=== PATIENT | female | born 1930 | race Caucasian/White ===

== ENCOUNTER 2017-08-02 16:53 | Inpatient (IN) | payer MEDICARE, BC ==
[2017-08-02] MEDS ORDERED: Enoxaparin Sodium 30 MG/0.3 ML SYRINGE SC SCH (21:00)
[2017-08-02] MEDS ORDERED: Senokot S 8.6-50 MG TAB PO PRN (21:21)
[2017-08-02] MEDS ORDERED: PROVENTIL INHALER 6.7 G (200 INHALATIONS) INH PRN (21:21)
[2017-08-02] MEDS ORDERED: HYDROcodone/Acetaminophen 5/325 mg Tablet PO PRN (21:21)
[2017-08-02] MEDS ORDERED: Benzonatate 100 MG CAP PO PRN (21:21)
[2017-08-02] MEDS ORDERED: Acetaminophen 500 MG TAB PO PRN (21:28)
[2017-08-02] MEDS ORDERED: Cefuroxime 500 MG TAB PO SCH (22:45)
[2017-08-02] MEDS ORDERED: Atorvastatin Calcium 10 MG TAB PO SCH (22:45)
[2017-08-02] MEDS ORDERED: Montelukast Sodium 10 mg Tablet PO SCH (22:45)
[2017-08-02] MEDS ORDERED: Dronedarone HCl 400 MG TAB PO SCH (22:45)
[2017-08-02] MEDS ORDERED: Cefuroxime 500 MG TAB ONE (22:55)
[2017-08-03] MEDS: Ipratropium Bromide 2.5 ml Neb NEB SCH ×2 (00:40→06:46)
[2017-08-03] MEDS ORDERED: Levothyroxine Sodium 25 MCG TAB PO SCH (06:00)
[2017-08-03] MEDS ORDERED: Mometasone/Formoterol 60 PUFF AER INH SCH (07:00)
[2017-08-03 07:42] VITALS: TEMP 97.9
[2017-08-03 07:55] VITALS: BP 101/53
[2017-08-03] MEDS ORDERED: AZELASTINE NASAL SCH (09:00)
[2017-08-03] MEDS ORDERED: Spiriva 18 MCG CAP (Box of 5 Caps) INH SCH (09:00)
[2017-08-03] MEDS ORDERED: Furosemide 40 MG TAB PO SCH (09:00)
[2017-08-03] MEDS ORDERED: Cefuroxime 500 MG TAB PO SCH (09:00)
[2017-08-03] MEDS ORDERED: Dronedarone HCl 400 MG TAB PO SCH (09:00)
[2017-08-03] MEDS ORDERED: Potassium Chloride 20 MEQ TAB PO SCH (09:00)
[2017-08-03] MEDS ORDERED: Stress 600 With Zinc 1 TAB PO SCH (09:00)
--- NOTE | 2017-08-03 15:45 | CT ---
CT OF THE BRAIN WITHOUT CONTRAST 08/03/17 No prior scans were available for comparison. There is a subtle low density area around the genu of the left internal capsule and possibly the more anterior portions of the posterior limb. I cannot tell if this area is new or old. If the patient we re to present with a right facial droop (central 7th presentation) or upper extremity weakness on the right, the findings would be more apt to be recent. If there are no such symptoms, then it is probab ly more likely they are old. There is a mild degree of atrophy present. The ventricular sizes are nor mal and show no shift. No mass or internal bleeding was seen. The visible paranasal sinuses are clear . IMPRESSION: Small low density area near the genu of the left internal capsule. See discussion of potential clinic al symptoms above and correlate with physical exam. Findings taken to nurses station at 1115 for transmission to the ordering physician. POS: HOME
[2017-08-03] MEDS ORDERED: Atorvastatin Calcium 10 MG TAB PO SCH (21:00)
[2017-08-03] MEDS ORDERED: Montelukast Sodium 10 mg Tablet PO SCH (21:00)
--- NOTE | 2017-08-09 16:15 | DIS ---
DATE OF ADMISSION: 08/02/2017 DATE OF DISCHARGE: 08/03/2017 FINAL DIAGNOSES: 1. Left acute ischemic stroke. 2. Chronic atrial fibrillation. 3. Coronary artery disease, status post coronary artery bypass grafting. 4. Chronic diastolic congestive heart failure. 5. Moderate aortic stenosis. 6. Carotid stenosis, bilateral. 7. Status post resection of colon cancer. 8. History of chronic anemia. HISTORY OF PRESENT ILLNESS/COURSE IN THE FIERRO: Ms. Harvey is an 87-year-old female with history of coronary artery disease, status post CABG, paroxysmal atrial fibrillation on Eliquis, chronic diastolic congestive heart failure, moderate aortic stenosis, and history of colon cancer with a history of chronic anemia. She was transferred from [facility] for acute on chronic anemia with hemoglobin at admission of 7.7, secondary to gastrointestinal bleed. Patient had an EGD under Dr. Vieyra. Patient's hemoglobin has stabilized, but, however, severely deconditioned. Hence recommended to continue physical therapy; hence transferred to our skilled care on 08/03/2017. Day after admission, during morning assessment, the patient complained of sudden onset of right-sided weakness, noted her right hand scutcher tender was weak with very poor strength on her right leg. ER team was summoned for stroke symptoms and was assessed and told possibly chronic condition. Due to patient's multiple comorbid condition, I called her PCP, Dr. Sheppard, from [facility] to gather further medical history. She informed me that she just had a brain CT scan on 07/28/2017 showing no acute findings or volume loss. I then ordered a stat brain CT scan, which showed presence of small low density area near the left internal capsule, potential for acute stroke. We then prepared her for transfer back to [facility] for further reevaluation and treatment for acute ischemic stroke. The patient was transferred to the emergency room under the care of Dr. Echols. Her vital signs showed blood pressure of 146/66, pulse of 80, respiratory rate 19, O2 sat 95% on room air, temperature of 98. EKG showed LVH, no ST-T wave changes. Labs showed hemoglobin of 11.9, hematocrit of 37, platelet count of 261, neutrophils of 64, lymphocytes of 13, and monocytes of 7. PT of 12.5, INR of 0.9. Her CMP showed chloride of 108, sodium of 141, potassium of 3.7, BUN of 18, creatinine of 0.91, alkaline phosphatase of 157. Patient was then subsequently transferred back to [facility]. This was discussed in great detail with the ER doctor, Dr. Oreilly, who agreed to evaluate the patient. DISPOSITION: Transfer to [facility] emergency room. CONDITION: Stable, but guarded. ACTIVITIES: Fall precautions. DIET: Per suggestion of admitting physician. MEDICATIONS: 1. Potassium chloride 20 mEq 1 tablet daily. 2. Vitamin D 2000 units 1 tablet daily. 3. Lipitor 20 mg daily. 4. Vitamin B complex 1 tablet daily. 5. Spiriva 1 inhalation daily. 6. Senokot 1 tablet b.i.d. 7. Protonix 40 mg daily. 8. Singular 10 mg daily. 9. Dulera 200/5 mcg 2 puffs inhalation daily. 10. Levothyroxine 25 mcg daily. 11. Imdur 15 mg b.i.d. 12. [place] 1 tablet every 8 hours p.r.n. for pain. 13. Lasix 40 mg b.i.d. 14. Multaq 200 mg b.i.d. 15. Cefuroxime 250 mg b.i.d. 16. Tessalon Perles 100 mg t.i.d. p.r.n. for cough. 17. Nasal spray 2 puffs per nasal daily. 18. Albuterol HFA 2 puffs inhalation every 6 hours p.r.n. for cough and wheezing. MTDD
== END 2017-08-03 12:00 | disposition short-term general hospital (02) | DRG 65 ==
LOC: BURMED 17:45
PROVIDERS: ADMIT Family Medicine; ATTEND Family Medicine
DX: I63.9 Cerebral infarction, unspecified (principal); I50.32 Chronic diastolic (congestive) heart failure; G81.94 Hemiplegia, unspecified affecting left nondominant side; I48.0 Paroxysmal atrial fibrillation; I48.2 Chronic atrial fibrillation; I25.10 Atherosclerotic heart disease of native coronary artery without angina pectoris; Z95.1 Presence of aortocoronary bypass graft; I65.23 Occlusion and stenosis of bilateral carotid arteries; Z90.49 Acquired absence of other specified parts of digestive tract; Z85.038 Personal history of other malignant neoplasm of large intestine; Z79.01 Long term (current) use of anticoagulants
CPT/HCPCS: 70450; 93005; G8978-GP-CL; G8979-GP-CI; J1650; J7644

== ENCOUNTER 2017-08-03 12:10 | Emergency (ER) | payer MEDICARE, BC ==
[2017-08-03 12:33] LABS: #Basophils 0.1 thou/uL (0.0-0.2); #Eosinphils 0.9 thou/uL (0.0-0.7); #Lymphocytes 0.9 thou/uL (1.20-3.40); #Monocytes 0.5 thou/uL (0.11-0.59); #Neutrophils 4.4 thou/uL (1.40-6.50); %Basophils 0.9 % (0.0-1.0); %Monocytes 7.4 % (0.0-10.0); %Neutrophils 64.7 % (42.0-75.0); Hemoglobin 11.9 g/dL (12.0-16.0); Mean Corpuscular HGB CONC 31.9 g/dL (32.0-36.0); Mean Corpuscular Hemoglobin 28.5 pg (27.0-31.0); Mean Corpuscular Volume 89.4 fl (81.0-99.0); Mean Platelet Volume 6.2 fL (7.4-10.4); Platelet Count 261 thou/uL (130-400); RBC Distribution Width 16.2 % (11.5-14.5); Red Blood Cell (RBC) Count 4.19 mill/uL (4.20-5.40); White Blood Cell (WBC) Count 6.8 thou/uL (4.8-10.8)
[2017-08-03 12:40] LABS: INR-International Normal Ratio 0.9; PTT 33.3 SEC (22.9-36.1); Prothrombin Time 12.5 SEC (12.0-14.7)
[2017-08-03 12:49] LABS: ALT (SGPT) 20 U/L (8-55); AST (SGOT) 29 U/L (5-34); Albumin 3.3 g/dL (3.4-4.8); Alkaline Phosphatase 157 U/L (40-150); Anion Gap 14 mmol/L (10-20); BUN (Urea Nitrogen) 18 mg/dL (9.8-20.1); Bilirubin, Total 0.3 mg/dL (0.2-1.2); Calc. Creatinine Clearance 0 mL/min (70-130); Calcium 9.6 mg/dL (7.8-10.44); Carbon Dioxide 23 mmol/L (23-31); Chloride 108 mmol/L (98-107); Estimated GFR-MDRD 59; Globulin 3.3 g/dL (2.4-3.5); Glucose 87 mg/dL (83-110); Potassium 3.7 mmol/L (3.5-5.1); Protein, Total 6.6 g/dL (6.0-8.3); Sodium 141 mmol/L (136-145)
[2017-08-03 12:50] LABS: CKMB 1.5 ng/mL (0-6.6); Troponin I 0.025 ng/mL (< 0.028)
== END 2017-08-03 13:55 | disposition short-term general hospital (02) ==
LOC: BURERS 12:10
DX: I63.9 Cerebral infarction, unspecified (principal); I10 Essential (primary) hypertension; Z79.82 Long term (current) use of aspirin; Z79.899 Other long term (current) drug therapy
CPT/HCPCS: 70450; 80053; 82553; 84484; 85025; 85610; 85730; 93005; 97116; 97139; 97530; 99285; G8978; G8979; J1650; J7644